=== PATIENT | male | born 1955 | race Caucasian/White ===

== ENCOUNTER 2019-09-20 17:17 | Emergency (ER) | payer OTHER ==
[~2019-09-20] VITALS: Ht 205.7 cm; Wt 159.0 kg
[2019-09-20 17:21] VITALS: BP 151/76
[2019-09-20] MEDS ORDERED: HYDROcodone/APAP 5/325 TABLET ONE (17:50)
[2019-09-20] MEDS ORDERED: HYDROcodone/APAP 5/325 TABLET PO ONE (18:00)
== END 2019-09-20 19:16 | disposition home or self-care (01) ==
LOC: ED 18:17
DX: S32.019A Unspecified fracture of first lumbar vertebra, initial encounter for closed fracture (principal); S32.029A Unspecified fracture of second lumbar vertebra, initial encounter for closed fracture; S32.039A Unspecified fracture of third lumbar vertebra, initial encounter for closed fracture; X58.XXXA Exposure to other specified factors, initial encounter; Y93.89 Activity, other specified; Y92.89 Other specified places as the place of occurrence of the external cause; Y99.8 Other external cause status
CPT/HCPCS: 74176; 99284